=== PATIENT | female | born 1970 | race Caucasian/White ===

== ENCOUNTER 2020-06-02 12:57 | Emergency (ER) | payer MEDICAID ==
[~2020-06-02] VITALS: Ht 157.5 cm; Wt 104.5 kg
[2020-06-02 13:02] VITALS: BP 141/89
[2020-06-02] MEDS ORDERED: ACETAMINOPHEN 500MG TABLET PO ONE (14:30)
== END 2020-06-02 14:34 | disposition home or self-care (01) ==
LOC: ER 13:22
DX: M25.552 Pain in left hip (principal); M25.562 Pain in left knee; M25.561 Pain in right knee; W01.0XXA Fall on same level from slipping, tripping and stumbling without subsequent striking against object, initial encounter; Y93.89 Activity, other specified; Y92.512 Supermarket, store or market as the place of occurrence of the external cause; I10 Essential (primary) hypertension; E11.9 Type 2 diabetes mellitus without complications
CPT/HCPCS: 99283